=== PATIENT | female | born 1960 | race Caucasian/White ===

== ENCOUNTER → 2020-05-05 | Outpatient (CLI) | payer OTHER ==
--- NOTE | 2020-05-06 11:53 | RAD ---
MR#: [id number] Date of Study: 05/06/2020 Ordering Physician: GRAY FOFANA, Referring Physician: KELSI SCHAEFER Tech: RT Nicholas (R) (N) APPROVED REPORT Test Type: Exercise Stress Nurse/Tech: Carlos Cole RN Test Indications: chest pain Cardiac History: HTN, smoker, DM Medications: See Electronic Medical Record Medical History: See Electronic Medical Record Resting ECG: SR Resting Heart Rate: 78 bpm Resting Blood Pressure: 131/78mmHg Pretest Chest Pain: None Nurse/Tech Notes Lungs CTA, S1S2 Consent: The procedure was explained to the patient in lay terms. Informed consent was witnessed. Mir eout was entered into [employer]. History and Stress Test performed by RT Nicholas (R) (N) Stress Symptoms No chest pain or symptoms. POST EXERCISE Reason for Termination: Reached target heart rate Target HR: 137 Exercise duration: 3:25 min:sec, 1 Stage Exercise capacity: 4.6METs Max Blood Pressure: 155/48mmHg Blood Pressure response to exercise: Normal blood pressure response during stress. Heart Rate response to exercise: normal response Chest Pain: No. Arrhythmia: No. ST Change: No. INTERPRETATION Stress EKG Conclusion: Baseline EKG showed sinus rhythm. No ischemic changes at peak stress. No arr hythmias. Imaging Protocol IMAGE PROTOCOL: Rest Tc-99m/stress Tc-99m 2 days Rest: Stress: Viability: Radiopharm.Tc99m IxlzfuuwyHj77o Sestamibi Kvys42uGn 32mCi Duration 15min. 15min. Img Date 05/05/2020 05/06/2020 Inj-Img [id number]. 60min. Post-Injection Exercise: 1 minute Rest Admin Site:IV - Right HandAdministrator:RT Cindy (Dina)(N) Stress Admin Site: IV - Right HandAdministrator: RT Cindy (Dina)(N) STRESS DATA End Diast. Vol.81.0mlLVEDV index BSA38.0ml End Syst. Vol.23.0mlLVESV index BSA11.0ml Myocardial Srsr844.0gEject. Xesdispg51.0% Stress Scores Regional WT0.00Summed WT3.00 Regional WM0.00Summed WM2.00 Study quality was good. Left Ventricular size was Normal at Rest and Stress. Lung uptake was . Left Ventricular ejection fraction is 71%. The rest and stress images show normal perfusion, normal contraction and thickening. LV Perf. Quant 17 Seg. SSS0.00 17 Seg. SRS0.00 17 Seg. SDS0.00 Stress Defect Extent (% LAD)0.00Rest Defect Extent (% LAD)0.00Rev. Defect Extent (% LAD)0.00 Stress Defect Extent (% LCX) 0.00Rest Defect Extent (% LCX)0.00Rev. Defect Extent (% LCX)0.00 Stress Defect Extent (% RCA)0.00Rest Defect Extent (% RCA)0.00Rev. Defect Extent (% RCA)0.00 Stress Defect Extent (% [place])0.00Rest Defect Extent (% [place])0.00Rev. Defect Extent (% [place])0.00 Conclusion 1. Treadmill exercise cardioisotope stress test did not show any evidence of ischemia or infarct. 2. Normal left ventricular systolic function with ejection fraction calculated at 71%. 3. Low risk for cardiac events. Signed by : Chencho Perez, Electronically Approved : 05/06/2020 11:52:56
== END ==
LOC: NM 08:21
PROVIDERS: ATTEND Internal Medicine Cardiovascular Disease
DX: I10 Essential (primary) hypertension (principal); Z87.891 Personal history of nicotine dependence
CPT/HCPCS: 78452; A9500; 93017

== ENCOUNTER → 2021-06-26 | Outpatient (CLI) | payer BC ==
[~2021-06-26] MED LIST: LIDOCAINE 1% Multi-Dose 20 ML VIAL. INJ ONE; LIDOCAINE 2%/EPI 1:100,000 20 ML VIAL. INJ ONE
--- NOTE | 2021-06-27 07:47 | RAD ---
EXAM: Stereotactic left breast biopsy; specimen radiograph; post-biopsy clip placement; unilateral po st-biopsy mammogram. HISTORY: Left breast microcalcifications. TECHNIQUE AND FINDINGS: The procedure and its risks and benefits were discussed with the patient. Ris ks discussed included, but were not limited to, pain, infection, bleeding and need for repeat biopsy. The patient provided verbal and written consent. The patient was placed in a prone position of the stereotacic table and the left breast was placed in ML compression. Images were obtained and the lesion of concern was localized using stereotaxis. The skin overlying this region was then sterilely prepped and infiltrated with a few cc 1% lidocaine for local anesthesia. Deeper soft tissue anesthesia was administered with epinephrine in 1% lidocaine. A small skin incision was made and the biopsy device was advanced and appropriate positioning was confi rmed with additional images. Subsequently, 12 core biopsy samples were obtained with vacuum assistance. A plain radiograph of the specimen was obtained, demonstrating inclusion of the lesion of interest. Then, a post-biospy clip wa s advanced to the site of biopsy using the same guidance technique. A sterile bandage was placed, an d the patient was transferred to the mammography suite for craniocaudal and mediolateral oblique view s. The post-biopsy mammogram demonstrates immediate post-biospy changes and a biopsy clip in expected po sition. The patient tolerated the procedure without difficulty and was discharged to home in stable c ondition with post-biospy care instructions. IMPRESSION: 1. Successful stereotactic biospy of left lower inner breast calcifications and post-biopsy clip plac ement. Please refer to the separate report submitted by the Department of Pathology for specimen find ings. 2. Follow up mammography is recommended following resolution of immediate post-biospy changes based on pathology findings and clinical suspicion. Electronically signed by: Ángel Joyner MD (06/26/2021 1:28 PM) [id number]
--- NOTE | 2021-06-27 18:06 | PATHOLOGY ---
[facility] Accession Number: [id number] . 01 Material submitted: . breast - LEFT BREAST TISSUE . 01 Clinical history: . CALCS IN GRID MICROCALF LEFT . 02 Diagnosis: Breast tissue, left breast calcifications core biopsies: - Ancient fibroadenoma. - Columnar cell change, focal. - Sclerosing adenosis, focal. - Mild ductal epithelial hyperplasia, focal. - Duct ectasia. - Calcifications identified. (JPM:esdras; 06/27/2021) S 06/27/2021 1656 Local . 02 Comment: There are calcifications present primarily associated with an ancient fibroadenoma. There is no evidence of malignancy. (JPM:esdras; 06/27/2021) . 02 Electronically signed: . Cruz Topete MD, Pathologist NPI- [id number] . 01 Gross description: . The specimen is received in formalin, labeled "Angeles Kenny, left breast tissue". Received within a plastic cassette are multiple needle cores of fibrofatty tissue measuring 2.7 x 2.2 x 0.4 cm in aggregate dimensions. The specimen is submitted entirely in cassettes A1 to A7. The specimen is collected at 9:03 AM and placed into formalin at 9:12 AM on 06/26/2021. The specimen is removed from formalin at 7:50 PM on 06/26/2021. The total formalin fixation time is 10 hours and 38 minutes.([facility]; 06/26/2021) [facility] 06/26/2021 1632 Local . 02 Pathologist provided ICD-10: D24.2, N60.22, N62, N60.42 . 02 CPT . 855455 Specimen Comment: A courtesy copy of this report has been sent to [phone] Specimen Comment: Report sent to Performed at: [address] [facility] [address], [place] [id number] MD Mike Dang MD Phone: [phone] Performed at: 02 [facility] [place] [address] [place], [place] [id number] MD Cruz Topete MD Phone: [phone]
== END | disposition home or self-care (01) ==
LOC: MAMMO 08:10
PROVIDERS: ATTEND Surgery
DX: R92.0 Mammographic microcalcification found on diagnostic imaging of breast (principal); D24.2 Benign neoplasm of left breast; N60.22 Fibroadenosis of left breast; N60.42 Mammary duct ectasia of left breast; Z88.0 Allergy status to penicillin
CPT/HCPCS: 19081; 77065